=== PATIENT | female | born 1950 | race African-American/Black ===

== ENCOUNTER 2019-03-30 19:02 | Emergency (ER) | payer OTHER ==
[~2019-03-30] VITALS: Ht 167.6 cm; Wt 85.0 kg
[2019-03-30 19:28] VITALS: Ht 167.6 cm; Wt 85.0 kg
[2019-03-30 21:32] LABS: BASOPHIL % 0.4 % (0-2); PLATELET COUNT 210 x10^3mcL (130-400)
[2019-03-30 21:34] LABS: RED CELL DISTRIBUTION WIDTH 15.2 % (11.5-14.5)
[2019-03-30 21:45] LABS: ALKALINE PHOSPHATASE 91 U/L (46-116); ALT/SGPT 24 U/L (14-59); AST/SGOT 20 U/L (15-37); BILIRUBIN TOTAL 0.5 mg/dL (0.20-1.00); CALCIUM 8.9 mg/dL (8.5-10.1); CARBON DIOXIDE 35.9 mmol/L (21-32); CHLORIDE SERUM 100 mmol/L (98-107); CREATININE SERUM 1.1 mg/dL (0.6-1.0); GLUCOSE SERUM 135 mg/dL (74-106); SODIUM SERUM 141 mmol/L (136-145); TOTAL PROTEIN, SERUM 7.2 g/dL (6.4-8.2)
[2019-03-30 21:49] LABS: ALBUMIN 3.2 g/dL (3.4-5.0); POTASSIUM SERUM 2.5 mmol/L (3.5-5.1)
[2019-03-30 21:56] LABS: T3 TOTAL 0.89 ng/mL
[2019-03-30 22:13] LABS: FREE T4 1.03 ng/dL (0.76-1.46); FREE THYROXINE INDEX 2.5 ug/dL (1.4-4.5); T4(THYROXINE) 7.5 ug/dL (4.7-13.3)
[2019-03-30 23:14] VITALS: BP 108/57
== END 2019-03-30 23:14 | disposition home or self-care (01) ==
LOC: ED 19:02
PROVIDERS: Emergency Medicine
DX: R00.2 Palpitations (principal); I10 Essential (primary) hypertension
CPT/HCPCS: 36415; 84439; Q0092